=== PATIENT | female | born 1970 | race African-American/Black ===

== ENCOUNTER 2016-10-09 20:30 | Emergency (ER) | payer OTHER ==
[~2016-10-09] VITALS: Ht 162.6 cm; Wt 88.5 kg
[~2016-10-09 20:30] MED LIST: LORA10TA19 PO; OMEP40EC1 PO; RANI-287 PO; TRAZ-286 PO; [UNRECOGNIZED DRUG - CODE] PO
[2016-10-09 20:37] VITALS: BP 140/79
--- NOTE | 2016-10-09 23:59 | NUR ---
PT TAKEN TO BED 6
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
--- NOTE | 2016-10-10 01:12 | NUR ---
Patient appears to be resting comfortably in bed. Vital Signs within normal limits. Respirations even and unlabored.
--- NOTE | 2016-10-10 01:27 | NUR ---
Dr. Quintanilla evaluating patient at bedside.
[2016-10-10] MEDS ORDERED: KETOROLAC 60 MG/2 ML VIAL IM ONE (01:40)
[2016-10-10 02:11] VITALS: BP 124/78
--- NOTE | 2016-10-10 02:11 | NUR ---
Patient discharged with v/s stable. Written and verbal after care instructions given and explained. Patient alert, oriented and verbalized understanding of instructions. Ambulatory with steady gait. All questions addressed prior to discharge. ID band removed. Patient advised to follow up with PMD THIS WK OR RETURN TO ER IF CONDITION WORSENS. Rx of MOTRIN given. Patient educated on indication of medication including possible reaction and side effects. Opportunity to ask questions provided and answered.
== END 2016-10-10 02:11 | disposition home or self-care (01) ==
LOC: MED 20:30
DX: S13.4XXA Sprain of ligaments of cervical spine, initial encounter (principal); R07.9 Chest pain, unspecified; M79.622 Pain in left upper arm; K21.9 Gastro-esophageal reflux disease without esophagitis; Z88.1 Allergy status to other antibiotic agents; Z91.010 Allergy to peanuts; V43.52XA Car driver injured in collision with other type car in traffic accident, initial encounter; Y93.I9 Activity, other involving external motion; Y92.488 Other paved roadways as the place of occurrence of the external cause; Y99.8 Other external cause status
CPT/HCPCS: 81002; 81025; 93005; 96372; 99283; J1885

== ENCOUNTER 2017-11-05 12:20 | Outpatient (CLI) | payer OTHER ==
[2017-11-05 13:47] LABS: EOSINOPHILS # (AUTO) 0.2 K/uL (0-0.4); HEMOGLOBIN 12.4 g/dL (12.0-16.0)
[2017-11-05 13:56] LABS: BASOPHILS # (AUTO) 0.1 K/uL (0.00-0.22); BASOPHILS % (AUTO) 1.1 % (0.0-2.0); EOSINOPHILS % (AUTO) 2.6 % (0.0-4.0); HEMATOCRIT 37.8 % (36-48); LYMPHOCYTES # (AUTO) 2.7 K/uL (2.5-16.5); LYMPHOCYTES % (AUTO) 41.5 % (20.5-51.1); MEAN CORPUSCULAR HEMOGLOBIN 30 pg (27-31); MEAN CORPUSCULAR HGB CONC 33 g/dL (33-37); MEAN CORPUSCULAR VOLUME 90.9 fL (80-94); MONOCYTES # (AUTO) 0.8 K/uL (0.8-1.0); MONOCYTES % (AUTO) 11.8 % (1.7-9.3); NEUTROPHILS # (AUTO) 2.8 K/uL (1.8-7.7); PLATELET COUNT (AUTO) 279 K/uL (140-450); RED BLOOD CELL COUNT(AUTO) 4.16 MIL/uL (4.20-5.40); WHITE BLOOD COUNT (AUTO) 6.6 K/uL (4.8-10.8)
[2017-11-05 14:17] LABS: ALBUMIN 3.7 g/dL (3.4-5.0); ANION GAP 10.5 (8-16); CARBON DIOXIDE 24.9 mmol/L (21-32); CHOL/HDL RATIO 2.1 (1-4.5); CREATININE 1.1 mg/dL (0.6-1.3); POTASSIUM 3.4 mmol/L (3.5-5.1); THYROID STIMULATING HORMONE 3.12 uIU/mL (0.34-3.74); TOTAL BILIRUBIN 0.2 mg/dL (0.0-1.0)
[2017-11-06 08:28] LABS: T4 FREE (DIRECT) 1.12 ng/dL (0.82-1.77)
== END 2017-11-05 20:39 | disposition home or self-care (01) ==
LOC: MLB 12:20
PROVIDERS: ATTEND Student in an Organized Health Care Education/Training Program
DX: Z00.01 Encounter for general adult medical examination with abnormal findings (principal); R53.82 Chronic fatigue, unspecified; K21.9 Gastro-esophageal reflux disease without esophagitis; Z83.3 Family history of diabetes mellitus; Z79.899 Other long term (current) drug therapy
CPT/HCPCS: 36415; 80053; 82948; 83036; 84439; 84443; 85025

== ENCOUNTER 2017-11-05 13:18 | Emergency (ER) | payer OTHER ==
[~2017-11-05] VITALS: Ht 172.7 cm; Wt 74.8 kg
[2017-11-05 13:41] VITALS: BP 115/63
[2017-11-05 13:57] VITALS: BP 115/63
--- NOTE | 2017-11-05 13:57 | NUR ---
Patient discharged with v/s stable. Written and verbal after care instructions given and explained. Patient verbalized understanding. Ambulatory with steady gait. All questions addressed prior to discharge. Advised to follow up with PMD.
== END 2017-11-05 13:57 | disposition home or self-care (01) ==
LOC: MED 13:18
DX: R55 Syncope and collapse (principal); K21.9 Gastro-esophageal reflux disease without esophagitis; Z88.1 Allergy status to other antibiotic agents; Z91.018 Allergy to other foods
CPT/HCPCS: 99281

== ENCOUNTER 2018-01-05 10:00 | Emergency (ER) | payer OTHER ==
[~2018-01-05] VITALS: Ht 160 cm; Wt 99.8 kg
[~2018-01-05 10:00] MED LIST changes: -TRAZ-286 PO; +TRAZ-343 PO
[2018-01-05 10:05] VITALS: BP 138/91
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
[2018-01-05] MEDS ORDERED: ACETAMINOPHEN 325 MG TAB PO ONE (10:40)
--- NOTE | 2018-01-05 10:57 | NUR ---
X-RAY AT THE BEDSIDE.
--- NOTE | 2018-01-05 11:57 | NUR ---
HELPED PT ONTO WHEELCHAIR AND TO RESTROOM---MD NOTIFIED PT CONTINUES C/O PAIN RIGHT HIP
[2018-01-05] MEDS ORDERED: traMADol 50 MG TAB PO ONE (12:00)
[2018-01-05 12:23] VITALS: BP 132/86
== END 2018-01-05 12:24 | disposition home or self-care (01) ==
LOC: MED 10:00
DX: S76.011A Strain of muscle, fascia and tendon of right hip, initial encounter (principal); K21.9 Gastro-esophageal reflux disease without esophagitis; Z88.1 Allergy status to other antibiotic agents; Z79.899 Other long term (current) drug therapy; X58.XXXA Exposure to other specified factors, initial encounter; Y93.89 Activity, other specified; Y92.89 Other specified places as the place of occurrence of the external cause; Y99.8 Other external cause status
CPT/HCPCS: 73502; 81002; 81025; 99284; Q0092

== ENCOUNTER 2018-08-26 12:20 | Outpatient (CLI) | payer OTHER ==
[2018-08-27 08:29] LABS: HEPATITIS B SURFACE ANTIBODY Reactive (.)
== END 2018-08-26 20:07 | disposition home or self-care (01) ==
LOC: MLB 12:20
PROVIDERS: ATTEND Family Medicine
DX: Z01.84 Encounter for antibody response examination (principal)
CPT/HCPCS: 36415; 86706

== ENCOUNTER 2019-02-16 18:12 | Outpatient (CLI) | payer OTHER ==
[~2019-02-16 18:12] MED LIST changes: -OMEP40EC1 PO; +OMEP40EC24 PO
[2019-02-17 08:14] LABS: FOLLICLE STIMULATING HORMONE 14.2 mIU/mL (.); LUTEINIZING HORMONE 21.9 mIU/mL (.)
== END 2019-02-16 20:10 | disposition home or self-care (01) ==
LOC: MLB 18:12
DX: Z34.92 Encounter for supervision of normal pregnancy, unspecified, second trimester (principal); Z3A.28 28 weeks gestation of pregnancy
CPT/HCPCS: 36415; 83001; 83002; 86304

== ENCOUNTER 2019-05-04 11:35 | Emergency (ER) | payer OTHER ==
[~2019-05-04] VITALS: Ht 162.6 cm; Wt 98.9 kg
[2019-05-04 11:50] VITALS: BP 149/99
--- NOTE | 2019-05-04 11:57 | NUR ---
WAIT AT LOBBY.
--- NOTE | 2019-05-04 12:17 | NUR ---
PATIENT AMBULATED WITH STEADY GAIT TO BED 2.
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
[2019-05-04] MEDS ORDERED: predniSONE 20 MG TAB PO ONE (13:55)
[2019-05-04 14:28] VITALS: BP 138/88
--- NOTE | 2019-05-04 14:29 | NUR ---
Patient discharged with v/s stable. Written and verbal after care instructions given and explained. Patient alert, oriented and verbalized understanding of instructions. Ambulatory with steady gait. All questions addressed prior to discharge. ID band removed. Patient advised to follow up with PMD. Rx of PREDNISONE, BENEDRYL given. Patient educated on indication of medication including possible reaction and side effects. Opportunity to ask questions provided and answered.
== END 2019-05-04 14:29 | disposition home or self-care (01) ==
LOC: MED 11:35
DX: R21 Rash and other nonspecific skin eruption (principal); K21.9 Gastro-esophageal reflux disease without esophagitis; Z79.899 Other long term (current) drug therapy
CPT/HCPCS: 99283; J7512

== ENCOUNTER 2019-07-07 08:19 | Outpatient (CLI) | payer OTHER ==
[2019-07-07 08:43] LABS: BASOPHILS % (AUTO) 0.7 % (0.0-2.0); EOSINOPHILS # (AUTO) 0.2 K/uL (0-0.4); EOSINOPHILS % (AUTO) 3.7 % (0.0-4.0); HEMATOCRIT 37.4 % (36-48); HEMOGLOBIN 12.2 g/dL (12.0-16.0); LYMPHOCYTES # (AUTO) 1.7 K/uL (2.5-16.5); LYMPHOCYTES % (AUTO) 33.8 % (20.5-51.1); MEAN CORPUSCULAR HEMOGLOBIN 31 pg (27-31); MEAN CORPUSCULAR HGB CONC 33 g/dL (33-37); MEAN CORPUSCULAR VOLUME 94.2 fL (80-94); MONOCYTES # (AUTO) 0.6 K/uL (0.8-1.0); MONOCYTES % (AUTO) 12.3 % (1.7-9.3); NEUTROPHILS # (AUTO) 2.4 K/uL (1.8-7.7); NEUTROPHILS % (AUTO) 49.5 % (42.2-75.2); PLATELET COUNT (AUTO) 300 K/uL (140-450); RED BLOOD CELL COUNT(AUTO) 3.96 MIL/uL (4.20-5.40); WHITE BLOOD COUNT (AUTO) 4.9 K/uL (4.8-10.8)
[2019-07-07 09:03] LABS: ANION GAP 10.7 (8-16); CARBON DIOXIDE 28.2 mmol/L (21-32); CHOL/HDL RATIO 2.6 (1-4.5); POTASSIUM 3.9 mmol/L (3.5-5.1); TOTAL BILIRUBIN 0.2 mg/dL (0.0-1.0)
== END 2019-07-07 22:23 | disposition home or self-care (01) ==
LOC: MLB 08:19
DX: E66.9 Obesity, unspecified (principal); I10 Essential (primary) hypertension
CPT/HCPCS: 36415; 80053; 85025